=== PATIENT | male | born 1935 | race Caucasian/White ===

== ENCOUNTER 2017-08-05 07:57 | Day surgery (SDC) | payer MEDICARE ==
[~2017-08-05] VITALS: Ht 167.6 cm; Wt 62.6 kg
[~2017-08-05 07:57] MED LIST: ASPI325 PO; CLIN150 PO; Cipro500 MG PO; Cleocin HCl300 MG PO; Flagyl500 MG PO; GUAI600T33; GUAI600T33 PO; LOSA50 PO; SACC250C PO; TYLENOL COLD M
== END 2017-08-05 10:34 | disposition home or self-care (01) ==
LOC: ORSCSDS 07:57
PROVIDERS: Internal Medicine Gastroenterology
PROC: 0DBL8ZX Excision of Transverse Colon, Via Natural or Artificial Opening Endoscopic, Diagnostic (ICD-10-PCS; principal; 2017-08-05 09:30)
PROC: 0DBK8ZX Excision of Ascending Colon, Via Natural or Artificial Opening Endoscopic, Diagnostic (ICD-10-PCS; principal; 2017-08-05 09:30)
PROC: 0DBP8ZX Excision of Rectum, Via Natural or Artificial Opening Endoscopic, Diagnostic (ICD-10-PCS; principal; 2017-08-05 09:30)
PROC: 0DBH8ZX Excision of Cecum, Via Natural or Artificial Opening Endoscopic, Diagnostic (ICD-10-PCS; principal; 2017-08-05 09:30)
DX: Z12.11 Encounter for screening for malignant neoplasm of colon (principal); D12.0 Benign neoplasm of cecum; D12.3 Benign neoplasm of transverse colon; D12.2 Benign neoplasm of ascending colon; K62.1 Rectal polyp; I10 Essential (primary) hypertension; K64.8 Other hemorrhoids; K57.30 Diverticulosis of large intestine without perforation or abscess without bleeding; Z86.010 Personal history of colon polyps; Z80.0 Family history of malignant neoplasm of digestive organs; Z79.899 Other long term (current) drug therapy
CPT/HCPCS: 88305; J7120

== ENCOUNTER 2019-07-05 12:00 | Observation (INO) | payer MEDICARE ==
[~2019-07-05] VITALS: Ht 165.1 cm; Wt 58.6 kg
[~2019-07-05 12:00] MED LIST changes: -GUAI600T33 PO
[2019-07-05 12:27] LABS: BASOPHILS ABSOLUTE AUTO 0.07 K/mm3 (0.00-0.23); BASOPHILS PERCENT AUTO 1 % (0-2); EOSINOPHILS ABSOLUTE AUTO 0.13 K/mm3 (0.00-0.68); EOSINOPHILS PERCENT AUTO 2 % (0-6); Hematocrit 40.3 % (37.0-53.0); Hemoglobin 13.4 g/dL (13.5-17.5); IMMATURE GRAN ABSOLUTE AUTO 0.02 K/mm3 (0.00-0.10); IMMATURE GRAN PERCENT AUTO 0 % (0-1); LYMPHOCYTES ABSOLUTE AUTO 1.25 K/mm3 (0.84-5.20); LYMPHOCYTES PERCENT AUTO 18 % (21-46); MONOCYTES ABSOLUTE AUTO 0.76 K/mm3 (0.16-1.47); MONOCYTES PERCENT AUTO 11 % (4-13); Mean Corpuscular HGB 32.4 pg (26.0-34.0); Mean Corpuscular HGB Conc 33.3 g/dL (31.5-36.5); Mean Corpuscular Volume 97 fL (80-100); Mean Platelet Volume 10.4 fL (9.1-12.4); NEUTROPHILS ABSOLUTE AUTO 4.58 K/mm3 (1.96-9.15); NEUTROPHILS PERCENT AUTO 67 % (41-73); Platelet Count 180 K/mm3 (150-400); RDW Standard Deviation 43.4 fL (35.1-46.3); Red Blood Cell Count 4.14 M/mm3 (4.30-5.90); White Blood Cell Count 6.81 K/mm3 (4.00-11.30)
[2019-07-05 12:40] LABS: International Normalized Ratio 1.07; Prothrombin Time Results 11.4 Sec (9.7-11.5)
[2019-07-05 12:45] LABS: Alanine Aminotransfer (ALT/SGP 44 U/L (12-78); Albumin, Blood 3.7 g/dL (3.4-5.0); Albumin/Globulin Ratio 1.1 (0.8-1.8); Alk Phos 72 U/L (50-136); Anion Gap 6 mmol/L (6-16); Aspartate Aminotrans (AST/SGOT 31 U/L (12-37); Bilirubin, Total 0.6 mg/dL (0.1-1.0); Blood Urea Nitrogen 23 mg/dL (8-24); Bun/Creatinine Ratio 21.7 (12.0-20.0); CO2, Blood 27 mmol/L (21-32); Calcium, Blood 8.6 mg/dL (8.5-10.1); Chloride, Blood 106 mmol/L (98-108); Creatinine, Blood 1.06 mg/dL (0.60-1.20); Globulin, Blood 3.4 g/dL (2.2-4.0); Glomerular Filtration Rate >60 (60-); Glucose, Blood 104 mg/dL (70-99); Sodium, Blood 139 mmol/L (136-145); Total Protein, Blood 7.1 g/dL (6.4-8.2)
[2019-07-05 14:05] LABS: Source, Urine Clean Catch
[2019-07-05 14:07] LABS: Bilirubin, Urine Neg (Neg); Blood, Urine Neg (Neg); Glucose Qualitative, Urine Neg (Neg); Ketones, Urine Neg (Neg); Leukocyte Esterase, Urine Neg (Neg); Nitrite, Urine Neg (Neg); Protein, Urine Neg (Neg); Urobilinogen, Urine NORM (Normal)
[2019-07-05 14:16] LABS: Appearance, Urine Clear (Clear); Color, Urine Yellow (P-Yellow)
[2019-07-05] MEDS ORDERED: MUCUS RLF DM E1 EACH PO (14:41)
[2019-07-05] MEDS ORDERED: HYDCHL25 PO (18:45)
[2019-07-05] MEDS ORDERED: Loratadine10 MG PO (18:46)
[2019-07-05] MEDS ORDERED: ACET500 PO (18:48)
--- NOTE | 2019-07-05 19:07 | NUR ---
SHIFT SUMMARY PT AXO PLEASANT AND COOPERATIVE WITH CARE. ARRIVED TO ROOM AT 1635. ADMISSION COMPLETE. PT ORIENTED TO ROOM. PT HAD BM AT ABOUT 1830 THAT WAS BROWN WITH SOME RUST COLORED BLOOD TINGED TOILET PAPER AND AREAS SURROUNDING. PT UP AD HAO WITH STEADY GAIT. PT REPORTS THAT HE WAS PRESCRIBED ORETEC BUT HE STOPPED TAKING IT BECAUSE IT MADE HIM FEEL TOO "DRY" AND HE "URINATED TOO MUCH AT NIGHT." BED IN LOW POSITION, CALL LIGHT WITHIN REACH. AWAITING GI CONSULT AT THIS TIME
--- NOTE | 2019-07-05 19:28 | NUR ---
PT ALERT AND ORINETED. VOICED RECENT BOWEL MOVEMENT OF "RED BLOOD" AND CAME IN TO THE HOSPITAL. HX OF COLONOSCOPY WITH POLYP REMOVALS. CURRENTLY ON FULL LIQUID DIET, WILL BE NPO AT MIDNIGHT FOR COLONOSCOPY IN THE AM. CALL LIGHT IN REACH.
--- NOTE | 2019-07-06 04:28 | NUR ---
PT WAS AWAKE UNTIL ABOUT MIDNIGHT, WATCHING TV, VOICED HE WAS WATCHING AN INTERESTING PROGRAM. FULL LIQUID DIET CONTINUES. PT WAS SCHEDULED FOR COLONOSCOPY BUT THIS WAS CHANGED LAST PM. HAS BEEN RESTING QUIETLY SINCE AROUND MIDNIGHT. CALL LIGHT IN REACH.
[2019-07-06 05:05] LABS: BASOPHILS ABSOLUTE AUTO 0.07 K/mm3 (0.00-0.23); BASOPHILS PERCENT AUTO 1 % (0-2); EOSINOPHILS ABSOLUTE AUTO 0.21 K/mm3 (0.00-0.68); EOSINOPHILS PERCENT AUTO 3 % (0-6); Hematocrit 38.4 % (37.0-53.0); Hemoglobin 12.7 g/dL (13.5-17.5); IMMATURE GRAN ABSOLUTE AUTO 0.01 K/mm3 (0.00-0.10); IMMATURE GRAN PERCENT AUTO 0 % (0-1); LYMPHOCYTES ABSOLUTE AUTO 1.93 K/mm3 (0.84-5.20); LYMPHOCYTES PERCENT AUTO 28 % (21-46); MONOCYTES ABSOLUTE AUTO 0.81 K/mm3 (0.16-1.47); MONOCYTES PERCENT AUTO 12 % (4-13); Mean Corpuscular HGB 31.7 pg (26.0-34.0); Mean Corpuscular HGB Conc 33.1 g/dL (31.5-36.5); Mean Corpuscular Volume 96 fL (80-100); Mean Platelet Volume 10.7 fL (9.1-12.4); NEUTROPHILS PERCENT AUTO 56 % (41-73); Platelet Count 163 K/mm3 (150-400); RDW Coefficient Variation 11.9 % (11.7-14.2); RDW Standard Deviation 41.5 fL (35.1-46.3); Red Blood Cell Count 4.01 M/mm3 (4.30-5.90); White Blood Cell Count 6.93 K/mm3 (4.00-11.30)
[2019-07-06 05:35] LABS: Anion Gap 7 mmol/L (6-16); Blood Urea Nitrogen 21 mg/dL (8-24); CO2, Blood 25 mmol/L (21-32); Calcium, Blood 8.8 mg/dL (8.5-10.1); Chloride, Blood 107 mmol/L (98-108); Creatinine, Blood 1.05 mg/dL (0.60-1.20); Glomerular Filtration Rate >60 (60-); Glucose, Blood 93 mg/dL (70-99); Potassium, Blood 3.9 mmol/L (3.5-5.5); Sodium, Blood 139 mmol/L (136-145)
--- NOTE | 2019-07-06 05:43 | NUR ---
AT SHIFT COMMENCE NURSE ASKED PT TO REPORT ANY BM DURING THE SHIFT SO NURSE COULD SEE IT. PT JUST REPORTED BM, NOTED MODERATE AMT BRIGHT RED COLORED LIQUIE IN TOILET. CALL LIGHT IN REACH.
--- NOTE | 2019-07-06 19:05 | NUR ---
SHIFT SUMMARY PATIENT DENIES PAIN, NAUSEA, AND SHORTNESS OF BREATH. PATIENT UP INDEPENDENT IN ROOM. PATIENT CONTINUES TO HAVE STEVE RED BLOOD IN STOOLS AND STOOLS FREQUENTLY. DR. WEISS CONSULTED FOR GI. PATIENT NPO AND GLORIA ORDERED. CALL LIGHT IN REACH.
--- NOTE | 2019-07-06 20:40 | NUR ---
ASSUMED CARE OF RALPH. HE STATES THIS IS NOT HIS FIRST RODEO WITH GI BLEEDS. HE IS CONCERNED THAT HE IS NOT BEING TAKEN IN FOR SURGERY BUT UNDERSTANDS THE DELEMA. HE IS UP AND DOWN TO THE BATHROOM, HAS SEVERAL LIGHT RED STOOLS AND THEN HE WILL HAVE A VERY DARK STOOL. HE REPORTS UP TO 10 STOOLS SO FAR. HE HAS DRANK 1/2 OF THE GO LYTE. DENIES ANY NAUSEA OR PAIN. BOWEL TONES HYPOACTIVE, IS PASSING FLATUS. WILL CONTINUE TO MONITOR. CALL LIGHT IN REACH.
--- NOTE | 2019-07-06 23:26 | NUR ---
RALPH IS CURRENTLY SLEEPING. IS INDEPENDENT TO THE BATHROOM. STILL HAS SOME OF THE BOWEL PREP TO FINISH. NO DISTRESS NOTED. CALL LIGHT IN REACH.
--- NOTE | 2019-07-07 00:51 | NUR ---
RALPH WAS JUST UP TO THE BATHROOM, STOOLS IS LIGHT ALMOST CLEAR, NO BLOOD AT THIS POINT. HE FINISHED HIS GO LYTLY. HE ASKED FOR MUCINEX, INFORMED HIM THERE IS NO ORDER. WILL HOP ON NEXT CALL TO MD AND SEE IF I CAN GET AN ORDER FOR IT. STATES HE TAKES IT FOR HIS SINUSES.
--- NOTE | 2019-07-07 04:25 | NUR ---
SHIFT SUMMARY: RALPH WAS UP AND DOWN THROUGHOUT THE NIGHT TO THE BATHROOM. STOOLS STARTED OFF WITH RUST RED COLOR AND NOW IS MORE A VERY LIGHT YELLOW COLOR, BUT STILL HAD SOME CHUNKS. HE HAS HAD NO NAUSEA THIS SHIFT. VS HAVE REMAINED STABLE. NO DIZZINESS NOTED. HE HAS BEEN NPO OTHER THEN SOME ICE AND WATER. HE HAS BEEN INDEPENDENT IN THE ROOM. DID REPORT SOME SINUS CONGESTION THAT STARTED YESTERDAY. THAT IS NOT ABNORMAL FOR HIM. NO PAIN NOTED. HE DID FINISH HIS BOWEL PREP. WILL CHECK LABS WHEN DRAWN. NO OTHER ACUTE CHANGES OCCURRED THIS SHIFT. WILL REPORT TO DAY SHIFT.
[2019-07-07 08:25] LABS: Hematocrit 36.9 % (37.0-53.0); Hemoglobin 12.1 g/dL (13.5-17.5)
--- NOTE | 2019-07-07 16:16 | NUR ---
SHIFT SUMMARY PATIENT DENIES PAIN, NAUSEA, AND SHORTNESS OF BREATH. PATIENT UP INDEPENDENT IN ROOM. PATIENT'S STOOLS HAVE BECOME LIGHT PINK TO NO VISIBLE BLOOD THIS SHIFT. PATIENT DIET ADVANCED TO FULL LIQUID. CALL LIGHT IN REACH.
--- NOTE | 2019-07-08 04:18 | NUR ---
SHIFT SUMMARY A/O, ABLE TO MAKE NEEDS KNOWN. COOPERATIVE WITH CARE. CALLS AND ANSWERS QUESTIONS APPROPRIATELY. NO C/O PAIN/DISCOMFORT OVERNIGHT. INDEPENDENT IN ROOM. STATED HAS NOT HAD A BM SINCE EARLY YESTERDAY 07/07/19; ONLY THING COMING OUT IS GAS. CONTINUES TO SHOW ANY KIND OF EVIDENCE IN TOILET; NON THUS FAR. VSS/AFEBRILE. NO ACUTE CHANGES NOTED OVERNIGHT. STATED ABLE TO SLEEP SOME. BED IN LOWEST POSITION. CALL LIGHT AND BELONGINGS WITHIN REACH. WCTM. REPORT TO ONCOMING RN.
[2019-07-08 10:25] LABS: Hematocrit 35.3 % (37.0-53.0); Hemoglobin 11.8 g/dL (13.5-17.5)
--- NOTE | 2019-07-08 13:08 | NUR ---
DISCHARGE DISCHARGE MEDICATIONS AND INSTRUCTIONS EXPLAINED TO PATIENT. PATIENT STATED UNDERSTANDING. NINI WILL CALL PATIENT AT HOME TO SCHEDULE PCP FOLLOW UP. IV REMOVED WITHOUT ISSUE. BELONGINGS WITH PATIENT. HOME MEDICATION RETURNED. PATIENT TRANSFERED TO PRIVATE VEHICLE VIA WHEELCHAIR.
== END 2019-07-08 13:08 | disposition home or self-care (01) ==
LOC: ER 12:00 → MEDS 12:01
PROVIDERS: Emergency Medicine; Internal Medicine Gastroenterology; ADMIT Internal Medicine
DX: K92.1 Melena (principal); D62 Acute posthemorrhagic anemia; I10 Essential (primary) hypertension; K64.9 Unspecified hemorrhoids; Z79.899 Other long term (current) drug therapy; Z87.19 Personal history of other diseases of the digestive system; Z88.0 Allergy status to penicillin; Z86.010 Personal history of colon polyps
CPT/HCPCS: 36415; 80048; 80053; 81003; 85014; 85018; 85025; 85027; 85610; 93005; 93010; 99285-25; A9270; A9270-GY; G0378

== ENCOUNTER 2023-01-12 13:14 | Emergency (ER) | payer MEDICARE ==
[~2023-01-12] VITALS: Ht 170.2 cm; Wt 59.9 kg
[~2023-01-12 13:14] MED LIST changes: +ACET500 PO; +HYDCHL25 PO; +Loratadine10 MG PO; +MUCUS RLF DM E1 EACH PO
[2023-01-12 14:10] LABS: BASOPHILS ABSOLUTE AUTO 0.08 K/mm3 (0.00-0.23); BASOPHILS PERCENT AUTO 1 % (0-2); EOSINOPHILS ABSOLUTE AUTO 0.12 K/mm3 (0.00-0.68); EOSINOPHILS PERCENT AUTO 2 % (0-6); Hematocrit 31.3 % (37.0-53.0); Hemoglobin 10.4 g/dL (13.5-17.5); IMMATURE GRAN ABSOLUTE AUTO 0.01 K/mm3 (0.00-0.10); IMMATURE GRAN PERCENT AUTO 0 % (0-1); LYMPHOCYTES ABSOLUTE AUTO 0.96 K/mm3 (0.84-5.20); LYMPHOCYTES PERCENT AUTO 17 % (21-46); MONOCYTES ABSOLUTE AUTO 0.59 K/mm3 (0.16-1.47); MONOCYTES PERCENT AUTO 10 % (4-13); Mean Corpuscular HGB Conc 33.2 g/dL (31.5-36.5); Mean Corpuscular Volume 96 fL (80-100); Mean Platelet Volume 10.3 fL (9.1-12.4); NEUTROPHILS ABSOLUTE AUTO 4.05 K/mm3 (1.96-9.15); NEUTROPHILS PERCENT AUTO 70 % (41-73); Platelet Count 181 K/mm3 (150-400); RDW Coefficient Variation 12.2 % (11.7-14.2); RDW Standard Deviation 43.2 fL (35.1-46.3); Red Blood Cell Count 3.25 M/mm3 (4.30-5.90); White Blood Cell Count 5.81 K/mm3 (4.00-11.30)
[2023-01-12 14:31] LABS: Albumin, Blood 3.4 g/dL (3.4-5.0); Bilirubin, Total 0.7 mg/dL (0.1-1.0); Bun/Creatinine Ratio 25.5 (12.0-20.0); Calcium, Blood 8.7 mg/dL (8.5-10.1); Creatinine, Blood 0.83 mg/dL (0.60-1.20); Globulin, Blood 3.4 g/dL (2.2-4.0); Potassium, Blood 5.2 mmol/L (3.5-5.5); Total Protein, Blood 6.8 g/dL (6.4-8.2)
[2023-01-12 19:30] VITALS: BP 134/78
== END 2023-01-12 20:02 | disposition home or self-care (01) ==
LOC: ER 13:14
PROVIDERS: Student in an Organized Health Care Education/Training Program
DX: K92.2 Gastrointestinal hemorrhage, unspecified (principal); D64.9 Anemia, unspecified; Z88.0 Allergy status to penicillin; Z91.018 Allergy to other foods; Z79.899 Other long term (current) drug therapy; I10 Essential (primary) hypertension
CPT/HCPCS: 80053; 82272; 85025; 85730; 86850; 86900; 86901; 96374; 99285-25; C9113

== ENCOUNTER 2023-01-22 17:35 | Emergency (ER) | payer MEDICARE ==
[~2023-01-22] VITALS: Ht 167.6 cm; Wt 54.0 kg
[2023-01-22] MEDS ORDERED: LOSARTAN POTASS25 M2 PO (17:44)
[2023-01-22 18:17] LABS: BASOPHILS ABSOLUTE AUTO 0.11 K/mm3 (0.00-0.23); BASOPHILS PERCENT AUTO 1 % (0-2); EOSINOPHILS PERCENT AUTO 2 % (0-6); Hematocrit 30.1 % (37.0-53.0); Hemoglobin 10.1 g/dL (13.5-17.5); IMMATURE GRAN ABSOLUTE AUTO 0.02 K/mm3 (0.00-0.10); IMMATURE GRAN PERCENT AUTO 0 % (0-1); LYMPHOCYTES ABSOLUTE AUTO 1.54 K/mm3 (0.84-5.20); LYMPHOCYTES PERCENT AUTO 16 % (21-46); MONOCYTES ABSOLUTE AUTO 0.79 K/mm3 (0.16-1.47); MONOCYTES PERCENT AUTO 8 % (4-13); Mean Corpuscular HGB 32.7 pg (26.0-34.0); Mean Corpuscular HGB Conc 33.6 g/dL (31.5-36.5); Mean Corpuscular Volume 97 fL (80-100); Mean Platelet Volume 10.1 fL (9.1-12.4); NEUTROPHILS ABSOLUTE AUTO 6.81 K/mm3 (1.96-9.15); NEUTROPHILS PERCENT AUTO 72 % (41-73); Platelet Count 284 K/mm3 (150-400); RDW Coefficient Variation 12.6 % (11.7-14.2); RDW Standard Deviation 44.8 fL (35.1-46.3); Red Blood Cell Count 3.09 M/mm3 (4.30-5.90); White Blood Cell Count 9.47 K/mm3 (4.00-11.30)
[2023-01-22 18:42] LABS: Albumin, Blood 3.6 g/dL (3.4-5.0); Albumin/Globulin Ratio 1.1 (0.8-1.8); Bilirubin, Total 0.4 mg/dL (0.1-1.0); Bun/Creatinine Ratio 20.6 (12.0-20.0); Calcium, Blood 9.1 mg/dL (8.5-10.1); Creatinine, Blood 0.97 mg/dL (0.60-1.20); Globulin, Blood 3.4 g/dL (2.2-4.0); Potassium, Blood 4.9 mmol/L (3.5-5.5)
[2023-01-22 22:19] LABS: Hemoglobin 8.7 g/dL (13.5-17.5)
[2023-01-23 00:19] LABS: Hematocrit 26.5 % (37.0-53.0); Hemoglobin 8.8 g/dL (13.5-17.5)
[2023-01-23 02:07] VITALS: BP 116/61
== END 2023-01-23 02:07 | disposition home or self-care (01) ==
LOC: ER 17:35
PROVIDERS: Emergency Medicine; Student in an Organized Health Care Education/Training Program
DX: K92.1 Melena (principal); D64.9 Anemia, unspecified; I10 Essential (primary) hypertension
CPT/HCPCS: 80053; 85014; 85018; 85025; 86850; 86900; 86901; 99285

== ENCOUNTER 2023-02-26 04:57 | Inpatient (IN) | payer OTHER ==
[~2023-02-26] VITALS: Ht 167.6 cm; Wt 54.0 kg
[~2023-02-26 04:57] MED LIST changes: +LOSARTAN POTASS25 M2 PO
[2023-02-26 05:36] LABS: BASOPHILS ABSOLUTE AUTO 0.09 K/mm3 (0.00-0.23); BASOPHILS PERCENT AUTO 1 % (0-2); EOSINOPHILS ABSOLUTE AUTO 0.14 K/mm3 (0.00-0.68); EOSINOPHILS PERCENT AUTO 1 % (0-6); Hemoglobin 8.7 g/dL (13.5-17.5); IMMATURE GRAN ABSOLUTE AUTO 0.04 K/mm3 (0.00-0.10); IMMATURE GRAN PERCENT AUTO 0 % (0-1); LYMPHOCYTES ABSOLUTE AUTO 1.02 K/mm3 (0.84-5.20); LYMPHOCYTES PERCENT AUTO 10 % (21-46); MONOCYTES ABSOLUTE AUTO 0.82 K/mm3 (0.16-1.47); MONOCYTES PERCENT AUTO 8 % (4-13); Mean Corpuscular HGB 28.9 pg (26.0-34.0); Mean Corpuscular HGB Conc 32.2 g/dL (31.5-36.5); Mean Corpuscular Volume 90 fL (80-100); Mean Platelet Volume 10.3 fL (9.1-12.4); NEUTROPHILS ABSOLUTE AUTO 7.92 K/mm3 (1.96-9.15); NEUTROPHILS PERCENT AUTO 79 % (41-73); Platelet Count 232 K/mm3 (150-400); RDW Coefficient Variation 12.9 % (11.7-14.2); RDW Standard Deviation 42.9 fL (35.1-46.3); Red Blood Cell Count 3.01 M/mm3 (4.30-5.90); White Blood Cell Count 10.03 K/mm3 (4.00-11.30)
[2023-02-26 06:58] LABS: Albumin, Blood 3.5 g/dL (3.4-5.0); Albumin/Globulin Ratio 1.1 (0.8-1.8); Bilirubin, Total 0.5 mg/dL (0.1-1.0); Bun/Creatinine Ratio 23.6 (12.0-20.0); Calcium, Blood 8.7 mg/dL (8.5-10.1); Creatinine, Blood 1.23 mg/dL (0.60-1.20); Globulin, Blood 3.1 g/dL (2.2-4.0); Potassium, Blood 4.4 mmol/L (3.5-5.5); Total Protein, Blood 6.6 g/dL (6.4-8.2)
[2023-02-26 07:47] LABS: Calcium, Blood 8.7 mg/dL (8.5-10.1); Potassium, Blood 4.4 mmol/L (3.5-5.5)
[2023-02-26] MEDS ORDERED: LOSA25 PO (10:17)
[2023-02-26 10:43] LABS: Hematocrit 25.7 % (37.0-53.0); Hemoglobin 8.3 g/dL (13.5-17.5); Mean Corpuscular HGB 29.3 pg (26.0-34.0); Mean Corpuscular HGB Conc 32.3 g/dL (31.5-36.5); Mean Corpuscular Volume 91 fL (80-100); Mean Platelet Volume 10.2 fL (9.1-12.4); Platelet Count 226 K/mm3 (150-400); RDW Standard Deviation 42.8 fL (35.1-46.3); Red Blood Cell Count 2.83 M/mm3 (4.30-5.90); White Blood Cell Count 10.74 K/mm3 (4.00-11.30)
--- NOTE | 2023-02-26 14:06 | NUR ---
PATIENT ARRIVED FROM ER TODAY. RIGHT HIP FX PATIENT IS [place] BUT IS A&OX2-3 SINCE HE CAN BE A POOR HISTORIAN PER DAUGHTER. VS ARE WNL AND IS ON RA. TELE IS IN PLACE AND IS SINUS TACH AT 111 BPM PER MILO THE PACKAGE CLERK. HE IS TOLERATING SMALL AMOUNTS OF PO INTAKE. PATIENT DENIES NUMBNESS OR TINGLING IN ALL EXTREMITIES. CAN MOVE ALL FINGERS AND TOES WHEN ASKED. PATIENT HAS A BRUISE ON HIS RIGHT HIP, RIGHT ELBOW, AND RIGHT FOREHEAD. PATIENT IS LAYING IN BED WITH CALL LIGHT IN REACH. DAUGHTERS PHONE NUMBER IS ON WHITEBOARD IN THE ROOM.
[2023-02-26 14:18] VITALS: BP 142/68
[2023-02-26] MEDS ORDERED: MASOPHEN325 M1 PO (14:27)
[2023-02-26] MEDS ORDERED: GUAI600T33 PO ×2 (14:27→14:28)
[2023-02-26 15:45] LABS: Source, Urine Foley catheter
[2023-02-26 15:49] LABS: Appearance, Urine Clear (Clear); Bilirubin, Urine Neg (Neg); Blood, Urine Neg (Neg); Color, Urine Yellow (P-Yellow); Glucose Qualitative, Urine Neg (Neg); Ketones, Urine Neg (Neg); Leukocyte Esterase, Urine Neg (Neg); Nitrite, Urine Neg (Neg); Protein, Urine Neg (Neg); Specific Gravity, Urine 1.015 (1.003-1.022); Urobilinogen, Urine NORM (Normal)
--- NOTE | 2023-02-26 15:49 | NUR ---
SHIFT SUMMARY: RIGHT HIP FX PATIENT IS A&OX2-3 DUE TO BEING A POOR HISTORIAN PER PATIENTS DAUGHTER AND IS [place]. VS ARE WNL AND IS ON RA. PATIENT DENIES PAIN AT THIS TIME. CH WAS JUST INSERTED AND IS DRAINING PER GRAVITY WITH YELLOW URINE. HIS RIGHT HIP, ELBOW, AND FOREHEAD HAVE A PURPLE BRUISE ON THEM. PATIENT IS ABLE TO MOVE ALL FINGERS AND TOES WHEN ASKED. DENIES NUMBNESS OR TINGLING IN ALL EXTREMITIES. PATIENT IS TOLERATING SMALL AMOUNTS OF PO INTAKE. HE IS LAYING IN BED WITH CALL LIGHT IN REACH. THE PLAN IS TO BE NPO AT MIDNIGHT FOR POSSIBLE SURGERY IN THE MORNING.
[2023-02-26 18:30] LABS: Hematocrit 28.4 % (37.0-53.0)
[2023-02-26 20:13] VITALS: BP 156/72
[2023-02-26 20:19] VITALS: BP 156/72
--- NOTE | 2023-02-26 20:35 | NUR ---
STATUS CHANGE PT CONFUSED THIS EVENING, DOES NOT KNOW WHERE HE IS. NO REPORT FROM DAYSMTFT RN OF ANY CONFUSION. PT DOES NOT KNOW WHERE HE IS AND STATES HE IS "AT HOME". PT DROWSY AND HAS A BLANK STARE WHEN AWAKE. NOT SAFE TO TAKE ORAL MEDICATION AT THIS TIME. VITALS OBTAINED, PT IS TACYCARDIC HR 117-120, FEBRILE, AND IS NOW REQUIERING 3L O2 TO KEEP SATS ABOVE 90%. SPOKE WITH MIGUEL BEAUCHAMP TO NOTIFIED HIM OF PT SYMPTOMS. AND THAT PT NOW REQUIERING O2. HE INCREASED FLUID RATE OF LR TO 100ML/HR, ORDERED A VBG, COVID/INFLUENZA TEST AND TORADOL FOR FEVER.
[2023-02-26 21:25] LABS: Base Excess Venous 0.8 mmol/L; Bicarbonate Venous 24.5 mmol/L (24.0-30.0); PCO2 Venous 46.8 mmHg (38-42); pH Blood Venous 7.36 (7.34-7.37)
[2023-02-26 23:38] LABS: Influenza A, PCR NEGATIVE (NEGATIVE); Influenza B, PCR NEGATIVE (NEGATIVE); Resp Syncytial Virus, PCR NEGATIVE (NEGATIVE)
[2023-02-27] VITALS (16 sets, daily range): BP systolic 97–135; BP diastolic 53–87
[2023-02-27 00:02] LABS: SARS-Cov-2 (COVID-19) PCR, MMC POSITIVE (NEGATIVE)
--- NOTE | 2023-02-27 04:35 | NUR ---
SHIFT SUMMARY PT HAS SLEPT WELL THROUGH THE SECOND HALF OF THE SHIFT. PT AT THE START OF THE SHIFT WAS CONFUSED AND DROWSY. TACYCARDIC, AND REQUIERING 02 TO GET SATS ABOVE 90%. PT STILL IS ON 3L O2. PLEASE SEE PREVIOUS NURSE'S NOTES. PROVIDER NOTIFIED. PT STARTED ON FLUIDS, AND LABS ORDERED. PT TESTED POSITIVE FOR COVID THIS SHIFT, ISOLATION PRECAUTIONS IN PLACE. PT HAS PERIODS OF CONFUSION AND IS UNABLE TO TELL ME WHERE HE IS OR ANSWER MANY OF MY QUESTIONS. THEN AT TIMES HE IS MORE CLEAR AND ABLE TO TELL ME WHERE HE AND IS ABLE TO EXPRESS WHAT HE NEEDS. PT MEDICATED PRN FOR PAIN PER EMAR. PT HAS BEEN NPO SINCE MIDNIGHT. PT ATTEMPTS TO GET OOB WITHOUT CALLING FOR ASSISTANCE, AND YELLS OUT INSTEAD OF USING CALL LIGHT. BED ALARM IN PLACE FOR SAFETY. PLAN IS FOR PROCEDURE TODAY. BED IN LOWEST POSITION, CALL LIGHT WITHIN REACH.
[2023-02-27 05:14] LABS: BASOPHILS ABSOLUTE AUTO 0.06 K/mm3 (0.00-0.23); BASOPHILS PERCENT AUTO 1 % (0-2); EOSINOPHILS ABSOLUTE AUTO 0.02 K/mm3 (0.00-0.68); EOSINOPHILS PERCENT AUTO 0 % (0-6); Hematocrit 26.7 % (37.0-53.0); Hemoglobin 8.4 g/dL (13.5-17.5); IMMATURE GRAN ABSOLUTE AUTO 0.05 K/mm3 (0.00-0.10); IMMATURE GRAN PERCENT AUTO 0 % (0-1); LYMPHOCYTES ABSOLUTE AUTO 0.58 K/mm3 (0.84-5.20); LYMPHOCYTES PERCENT AUTO 5 % (21-46); MONOCYTES ABSOLUTE AUTO 0.84 K/mm3 (0.16-1.47); MONOCYTES PERCENT AUTO 7 % (4-13); Mean Corpuscular HGB 28.7 pg (26.0-34.0); Mean Corpuscular HGB Conc 31.5 g/dL (31.5-36.5); Mean Corpuscular Volume 91 fL (80-100); Mean Platelet Volume 10.6 fL (9.1-12.4); NEUTROPHILS ABSOLUTE AUTO 9.89 K/mm3 (1.96-9.15); NEUTROPHILS PERCENT AUTO 87 % (41-73); Platelet Count 210 K/mm3 (150-400); RDW Coefficient Variation 13.2 % (11.7-14.2); RDW Standard Deviation 43.5 fL (35.1-46.3); Red Blood Cell Count 2.93 M/mm3 (4.30-5.90); White Blood Cell Count 11.44 K/mm3 (4.00-11.30)
[2023-02-27 06:19] LABS: Bun/Creatinine Ratio 20.2 (12.0-20.0); Calcium, Blood 8.6 mg/dL (8.5-10.1); Creatinine, Blood 1.24 mg/dL (0.60-1.20); Potassium, Blood 4.9 mmol/L (3.5-5.5)
--- NOTE | 2023-02-27 12:31 | NUR ---
PT TO GET READY FOR PROCEDURE IN ROOM. PT WILL GO STRAIGHT FROM ROOM TO OR FOR PROCEDURE,
--- NOTE | 2023-02-27 14:24 | NUR ---
02/27/23 1424 [place] I CEFAZOLIN 2 GRAMS GIVEN IVPB INTRAOPERATIVELY BY ANESTHESIA, CO.THELMA.
--- NOTE | 2023-02-27 18:31 | NUR ---
SHIFT SUMMARY S/P R GAMMA NAIL, SURGICAL DRESSING CDI, ANGELICA PO, CH PATENT/DRAINING/STAT LOCK ON/OFF FLOOR, REPOSITIONING, PAIN TREATED PER EMAR, TELE AFLUTTER @ 108 AFTER 2.5 MG LOPRESSOR, 4LNC POSTOP, BIOX ON, 2VXRAYS ORDERED FOR HUMERUS AND FOREARM. WILL REPORT TO ONCOMING NOC SEKOU.
[2023-02-28 02:56] VITALS: BP 115/58
[2023-02-28 04:50] LABS: BASOPHILS ABSOLUTE AUTO 0.03 K/mm3 (0.00-0.23); BASOPHILS PERCENT AUTO 0 % (0-2); EOSINOPHILS ABSOLUTE AUTO 0.07 K/mm3 (0.00-0.68); EOSINOPHILS PERCENT AUTO 1 % (0-6); Hematocrit 25.7 % (37.0-53.0); Hemoglobin 8.1 g/dL (13.5-17.5); IMMATURE GRAN ABSOLUTE AUTO 0.03 K/mm3 (0.00-0.10); IMMATURE GRAN PERCENT AUTO 0 % (0-1); LYMPHOCYTES ABSOLUTE AUTO 0.92 K/mm3 (0.84-5.20); LYMPHOCYTES PERCENT AUTO 9 % (21-46); MONOCYTES ABSOLUTE AUTO 1.27 K/mm3 (0.16-1.47); MONOCYTES PERCENT AUTO 13 % (4-13); Mean Corpuscular HGB 28.4 pg (26.0-34.0); Mean Corpuscular HGB Conc 31.5 g/dL (31.5-36.5); Mean Corpuscular Volume 90 fL (80-100); Mean Platelet Volume 10.7 fL (9.1-12.4); NEUTROPHILS ABSOLUTE AUTO 7.62 K/mm3 (1.96-9.15); NEUTROPHILS PERCENT AUTO 77 % (41-73); Platelet Count 193 K/mm3 (150-400); RDW Coefficient Variation 12.7 % (11.7-14.2); RDW Standard Deviation 42.1 fL (35.1-46.3); Red Blood Cell Count 2.85 M/mm3 (4.30-5.90); White Blood Cell Count 9.94 K/mm3 (4.00-11.30)
[2023-02-28 05:40] LABS: Bun/Creatinine Ratio 24.8 (12.0-20.0); Calcium, Blood 8.2 mg/dL (8.5-10.1); Creatinine, Blood 1.17 mg/dL (0.60-1.20); Potassium, Blood 4.9 mmol/L (3.5-5.5)
--- NOTE | 2023-02-28 06:05 | NUR ---
SHIFT SUMMARY POD1 RIGHT HIP PINNING. DRESSING ARE C/D/I. SENSATION AND CIRCULATION REMAIN INTACT. VSS, PT NOTED TO HAVE SOME PAUSES IN RESPIRATIONS WHILE SLEEPING. O2 SATURATIONS MAINTAINED >90%, EVEN WHILE TITRATING 02 FLOW DOWN. 4L VIA NC TO 1L. PT EXPERIENCED INTERMITTENT CONFUSION T/O THE NIGHT, BUT OVERALL WAS PLEASENT AND COOPERATIVE. WAS UNABLE TO REPOSITION Q2 D/T PT BEING UNABLE TO TOLLERATE IT. MEDICATED FOR PAIN WITH OXY AND DILAUDID. PT WOULD CALL OUT IF REPOSITIONED ANY OTHER WAY THAN HIGH FOWLERS. DRINKS PLACED INTO SIPPY CUPS BECAUSE PT IS UNABLE TO TIP CUP AT MOUTH AND IS UNABLE TO TOLLERATE LIQUIDS WITH STRAWS. PT IS DOING MUCH BETTER WITH THESE. CH REMAINS IN PLACE. PT DID NOT AMBULATE TONIGHT. PLAN FOR PT/OT TODAY TELE HAS READ A FLUTTER T/O THE NIGHT. ONE TIME IV DOSE OF LOPRESSER GIVEN D/T HR OF 130-140, MINIMAL IMPROVEMENT NOTED. OBTAINED ORDER FOR 25 MG LOPRESSOR BID. HR HAS BEEN CONTROLLED WELL AFTER THIS. 90'S-100.
[2023-02-28 08:08] VITALS: BP 100/64
[2023-02-28 11:09] VITALS: BP 119/67
--- NOTE | 2023-02-28 16:54 | NUR ---
SHIFT SUMMARY POD1 R HIP NAILING, SURGICAL DRESSINGS CDI, SCDS/TEDS ON, PT/OT EVAL'D, WBAT, R-WRIST FX/BRACE ON/NWB, PLATFORM WALKER. 2 PP MAX ASSIST/UP TO CHAIR/BSC. A&OX3/[place] W/AIDS IN (CASH TELLER AT BEDSIDE), VSS/RA/TELE AFLUTTER @ 95 BPM/BIOX ON, ANGELICA PO - LOW PO INTAKE/FULL MEAL ASSIST, PASSING LARGE AMT FLATUS, PAIN MANAGED PER EMAR, CH PATENT & DRAINING YELLOW URINE/STAT LOCK ON/OFF FLOOR. REPORT PROVIDED TO CRISTINE SAPP.
[2023-02-28 19:20] VITALS: BP 112/64
[2023-02-28 23:47] VITALS: BP 134/70
[2023-03-01 05:22] VITALS: BP 127/69
--- NOTE | 2023-03-01 06:13 | NUR ---
SHIFT SUMMARY PT IS HERE POD#2 FROM A RIGHT HIP NAILING AFTER THE PATIENT WAS FOUND DOWN AT HOME BY FAMILY. PT IS COVID +. PT WAS YELLING FOR STAFF FROM HIS ROOM TOWARDS THE BEGINNING OF THE SHIFT BECAUSE HE WANTED TO GET BACK TO BED. PT IS A MAX 2 PERSON ASSIST WITH A GAIT BELT. PT IS ON TELEMETRY AND THE TELE DESK HAS CALLED THIS RN MULTIPLE TIMES THIS SHIFT TO REPORT THE PT'S HR BEING IN THE 150'S. RONA ZABALA CALLED THE MD AND GOT AN ORDER FOR AN ADDITIONAL ONE-TIME DOSE OF 25 MG METOPROLOL. DAY TIME MEDS WERE ALSO CHANGED TO ASSIST IN KEEPING THE PT'S HR DOWN. PT WAS FOUND LATER IN THE SHIFT TO HAVE PULLED OFF ALL OF HIS TELEMETRY LEADS, HIS PULSE-OX SENSOR, AND THE PT ALSO PULLED OUT HIS CH CATHETER WITH THE BALLOON STILL INFLATED. PT WAS CLEANED UP AND A NEW GOWN WAS PUT ON. PT'S PAIN MEDICATED PER EMAR. ASIDE FROM THE PT'S HR, THE PT'S VITAL SIGNS HAVE BEEN STABLE.
[2023-03-01 07:25] VITALS: BP 115/57
[2023-03-01 14:48] VITALS: BP 127/64
--- NOTE | 2023-03-01 19:24 | NUR ---
SHIFT SUMMARY POD2 R GAMMA NAIL, A/OX3 WITH INTERMITTENT FORGETFULNESS,TOLERATING PO,UNABLE TO AMBULATE ON HIS OWN BUT CAN STAND PIVOT WITH ONE TO TWO STAFF ASSIST. WORKED WITH THERAPY TODAY, UP TO CHAIR T/O MOST OF THE SHIFT, PAIN WELL MANAGED PER EMAR. NO ACUTE EVENTS THIS SHIFT, CALL LIGHT IN REACH.
[2023-03-01 19:58] VITALS: BP 112/59
[2023-03-02 03:11] VITALS: BP 112/67
--- NOTE | 2023-03-02 06:20 | NUR ---
SHIFT SUMMARY PT IS POD#3 FOR A RIGHT HIP INTRAMEDULLARY GAMMA NAILING AFTER BEING FOUND DOWN BY THE PT'S FAMILY AT HOME. PT'S RFA IS ALSO FRACTURED AT THIS TIME AFTER HIS FALL AND IS IN A BRACE. PT IS ALSO COVID +. THIS RN RECEIVED ONE CALL FROM THE TELE DESK AROUND 0200 STATING THE PT'S HR WAS ONCE AGAIN IN THE 150'S. THIS RN WENT TO GO CHECK ON THE PT AND THIS RN FOUND THAT THE PT WAS ALMOST COMPLETELY OUT OF HIS BED, WITH HIS STOMACH ON THE BED, WITH HIS KNEES ABOUT READY TO TOUCH THE FLOOR. THIS RN ASSISTED THE PT ON GETTING BACK TO BED AND THIS RN AND PAT MCKEON ATTMEPTED TO GET THE PT COMFORTABLE. PT KEPT YELLING OUT "HELP" WHEN THIS RN OR PAT MCKEON WERE IN THE ROOM ASSISTING THE PT. PT STATES HE IS TRYING TO GET COMFORTABLE WITHOUT ANY SUCCESS FROM HIMSELF OR STAFF. LATER IN THE SHIFT, AFTER URINATING, PT WAS ABLE TO REST FOR A WHILE. VITAL SIGNS HAVE BEEN STABLE THROUGHOUT THE SHIFT. BED ALARM IS ON, BED IS IN LOWEST POSTION, CALL LIGHT IS WITHIN REACH.
[2023-03-02 07:42] VITALS: BP 134/67
[2023-03-02 14:44] VITALS: BP 131/62
--- NOTE | 2023-03-02 19:00 | NUR ---
SHIFT SUMMARY POD3 R HIP GAMMA NAIL, A/OX2-3 AND FORGETFUL, BED ALARM ON FOR SAFETY BUT HE HAS NOT TRIED TO GET UP BY HIMSELF TODAY, VSS, TOLERATING DIET, PAIN WELL MANAGED PER EMAR, DOES WELL WITH STAND PIVOT TRANSFERS, HE IS UNABLE TO BEAR WEIGHT ON HIS R WRIST WHICH HAS A BRACE IN PLACE. SURGICAL DRESSINGS CHANGED TODAY AND APPLIED NEW AQUACELLS X2. NO ACUTE EVENTS THIS SHIFT, CALL LIGHT IN REACH.
[2023-03-02 19:06] VITALS: BP 128/68
[2023-03-03 02:00] VITALS: BP 138/112
[2023-03-03 04:25] VITALS: BP 131/67
[2023-03-03 04:56] LABS: BASOPHILS ABSOLUTE AUTO 0.04 K/mm3 (0.00-0.23); BASOPHILS PERCENT AUTO 0 % (0-2); EOSINOPHILS ABSOLUTE AUTO 0.15 K/mm3 (0.00-0.68); EOSINOPHILS PERCENT AUTO 1 % (0-6); Hematocrit 27.7 % (37.0-53.0); Hemoglobin 8.8 g/dL (13.5-17.5); IMMATURE GRAN ABSOLUTE AUTO 0.09 K/mm3 (0.00-0.10); IMMATURE GRAN PERCENT AUTO 1 % (0-1); LYMPHOCYTES ABSOLUTE AUTO 1.36 K/mm3 (0.84-5.20); LYMPHOCYTES PERCENT AUTO 7 % (21-46); MONOCYTES ABSOLUTE AUTO 2.11 K/mm3 (0.16-1.47); MONOCYTES PERCENT AUTO 11 % (4-13); Mean Corpuscular HGB 28.5 pg (26.0-34.0); Mean Corpuscular HGB Conc 31.8 g/dL (31.5-36.5); Mean Corpuscular Volume 90 fL (80-100); Mean Platelet Volume 10.7 fL (9.1-12.4); NEUTROPHILS ABSOLUTE AUTO 15.05 K/mm3 (1.96-9.15); NEUTROPHILS PERCENT AUTO 80 % (41-73); Platelet Count 181 K/mm3 (150-400); RDW Standard Deviation 42.4 fL (35.1-46.3); Red Blood Cell Count 3.09 M/mm3 (4.30-5.90)
[2023-03-03 05:32] LABS: Albumin, Blood 2.7 g/dL (3.4-5.0); Albumin/Globulin Ratio 0.8 (0.8-1.8); Bilirubin, Total 1.7 mg/dL (0.1-1.0); Bun/Creatinine Ratio 26.1 (12.0-20.0); Calcium, Blood 8.3 mg/dL (8.5-10.1); Creatinine, Blood 1.11 mg/dL (0.60-1.20); Globulin, Blood 3.3 g/dL (2.2-4.0); Potassium, Blood 5.2 mmol/L (3.5-5.5)
--- NOTE | 2023-03-03 06:44 | NUR ---
SHIFT SUMMARY PT IS POD#4 FOR A RIGHT INTRAMEDULLARY GAMMA HIP NAILING AFTER BEING FOUND DOWN AT HOME BY FAMILY. PT'S AGITATION HAD ESCALATED THROUGHOUT THE BEGINNING OF THE SHIFT, RESULTING IN SOME INTERVENTIONS THAT NEEDED TO BE PERFORMED FOR THE PT'S SAFETY. AT THE BEGINNING OF THE SHIFT, PT SEEMINGLY COULD NOT GET COMFORTABLE, REGARDLESS OF HOW STAFF REPOSITIONED THE PT PER HIS INSTRUCTIONS AND DIRECTION. PT PULLED UP IN HIS BED MULTIPLE TIMES DURING THE SHIFT ONLY TO HAVE HIM SLIDE DOWN IN THE BED. PT PULLED OFF HIS TELEMETRY LEADS AT THE BEGINNING OF THE SHIFT AND THE PT WAS EDUCATED ABOUT THE IMPORTANCE OF LEAVING THEM ON. PT AGREED TO LEAVE THEM ON AT THAT TIME. PT PULLED THE TELE LEADS OFF AGAIN AT 0015. THIS RN ALSO RECEIVED MULTIPLE CALLS FROM THE TELEMETRY DESK STATING THAT THE PT'S HR WAS ELEVATING INTO THE 150'S (ONE CALL AT 2223 STATED THE PT'S HR WAS IN THE 160'S). PER TELE DESK, PT FLUCTUATES BETWEEN A-FIB AND A-FLUTTER. RONA ORDONEZ INFORMED OF THE SITUATION AND SHE SPOKE TO THE MD ON SHIFT AND 5 MG IM ZYPREXA WAS ORDERED AND GIVEN AT 0110. PT WAS MORE CALM AND PEACEFUL, BUT CONTINUED TO PULL ON HIS LINES (OXYGEN WAS APPLIED D/T LOW PULSE OX READINGS EARLIER IN THE SHIFT, WHICH THE PT PULLED OFF LATER IN THE SHIFT, BUT AFTER PT'S AGITATION WAS ADDRESSED, HE HAS BEEN SATTING IN THE 90'S). PT'S PAIN WAS ADDRESSED WITH BOTH IV AND PO MEDICATIONS USED PER EMAR. DUE TO THE PT'S CONSTANT AGITATION, THIS RN ASKED THE BAGGAGEMAN MD FOR NON-VIOLENT RESTRAINTS TO KEEP THE PT FROM TAKING OFF HIS TELE LEADS AND TO KEEP HIM SAFE FROM INJURY. ONLY THE LEFT LOWER EXTREMITY IS IN RESTRAINTS, WELL ALL FOUR RAILS BEING UP AT THIS TIME. RIGHT LOWER EXTREMITY NOT PLACED IN A RESTRAINT D/T FRACTURE. PT WAS RESTLESS IN THE BEGINNING OF THE SHIFT AND PAT MCKEON AND THIS RN GOT THE PT UP TO THE CHAIR PER HIS REQUEST. PT WAS UNHAPPY ABOUT THIS MOVE AND DID NOT WANT TO STAY IN THE CHAIR WITH HIS FEET UP SO THIS RN AND PAT MCKEON GOT THE PT BACK INTO BED. PT ATTEMPTED TO USE THE WALKER IN HIS ROOM, BUT THE PT IS A MAX 2 PERSON ASSIST AND NEEDS CONTINUAL INSTRUCTION TO MOVE HIS FEET. PT'S BED IS IN THE LOWEST POSITION, CALL LIGHT IS WITHIN REACH.
[2023-03-03 07:30] VITALS: BP 126/68
--- NOTE | 2023-03-03 09:29 | NUR ---
PACKED PATIENTS BELONGINGS:CELL PHONE WITH CHAPLAIN.HEARING AIDES WITH CHAPLAIN,EYE GLASSES AND CASE,ONE DOLLAR FOLDED WITH A QUARTER INSIDE.RN WITH ME WHILE PACKING ITEMS.
--- NOTE | 2023-03-03 10:17 | NUR ---
TRANSFER TO ROOM 348, WITH ALL PERSONAL ITEMS INCLUDING HEARING AIDS; REPORT CALLED TO ROBERT SAPP, GRANDDAUGHTER SALIMA IN ROOM, SHE NOTIFIED DAUGHTERS BY TEXT AND REPORTED THEY ARE AWARE OF TRANSFER.
--- NOTE | 2023-03-03 11:36 | NUR ---
PT WAS ARRIVED TO ROOM 348 AT 1015 VIA WHEEL CHAIR. PT IS A HEAVY TO PERSON PIVOT TRANSFER AT THIS TIME. PT DID NOT INTERACT MUCH AND WAS CALM. PT IS CURRENTLY SITTING UP IN RECLINER CHAIR WITH CHAIR ALARM IN PLACE. WILL CONTINUE TO MONITOR.
--- NOTE | 2023-03-03 12:04 | NUR ---
Spoke with pt's daughters Perri and Re by phone. They state Re assisted pt in filling out his Advance Directive some years ago, and they are currently trying to locate this paperwork. Re states she remembers his wishes. She asks if we can talk about this when she arrives at the hospital in the next hour. Will follow up with Re when she arrives.
--- NOTE | 2023-03-03 15:48 | NUR ---
Met with pt's daughter Re at bedside. Pt appears to be resting comfortably with eyes closed and respirations even/unlabored. Daughter Re agrees to change pt's code status to DNR with limited intervention. She reports this lines up with pt's advance directive, even though they are unable to find the directive. Pt is now DNR as per directive. Family is hopeful for pt to be accepted into rehabilitation for PT prior to returning home. Palliative Care will remain involved and avaialable.
[2023-03-03 17:22] VITALS: BP 89/60
--- NOTE | 2023-03-03 17:41 | NUR ---
PT AOX1 AND COOPERATIVE OF CARE, PT DOING WELL AND UP IN CHAIR WITH ALARM. FAMILY WAS AT BEDSIDE MOST OF THE AFTERNOON. NO DISTRESS NOTED AND WILL CALL TO USE URINAL. CALL LIGHT WITHIN REACH WILL CONTINUE TO MONITOR.
[2023-03-03 19:49] VITALS: BP 103/56
[2023-03-04 03:26] VITALS: BP 126/63
--- NOTE | 2023-03-04 04:14 | NUR ---
SHIFT SUMMARY; NO ACUTE CHANGES OVERNIGHT. THE PT IS AXO X2-3, REORIENTATBLE T/O THE NIGHT. THE PT HAS ATTEMPTED OOB A FEW TIMES. THE PT HAS TELE IN PLACE, A-FIB IN THE -90'S. THE PT HAS BEEN MEDICATED ONCE FOR R HIP/RLE PAIN W/ GOOD RELIEF. THE PT HAS BEEN SLEEPING OFF AND ON T/O THE NIGHT. THE PT DENIES ANY SOB, CHEST PAIN/PRESSURE, N/V OR DIARRHEA. PTS LAST RECORDED BM WAS 02/25, PT HAS BOWEL SOUNDS, PT IS UNSURE OF WHEN HIS LAST BM WAS. CURRENTLY THE PT IS SLEEPING IN BED WITH THE BED IN THE LOWEST POSITION AND THE CALL LIGHT AT BEDSIDE. FIRE SAFETY MAINTAINED T/O THE NIGHT.
[2023-03-04 05:42] LABS: BASOPHILS ABSOLUTE AUTO 0.04 K/mm3 (0.00-0.23); BASOPHILS PERCENT AUTO 0 % (0-2); EOSINOPHILS PERCENT AUTO 2 % (0-6); Hematocrit 25.4 % (37.0-53.0); Hemoglobin 8.2 g/dL (13.5-17.5); IMMATURE GRAN ABSOLUTE AUTO 0.06 K/mm3 (0.00-0.10); IMMATURE GRAN PERCENT AUTO 1 % (0-1); LYMPHOCYTES ABSOLUTE AUTO 1.95 K/mm3 (0.84-5.20); LYMPHOCYTES PERCENT AUTO 16 % (21-46); MONOCYTES ABSOLUTE AUTO 1.66 K/mm3 (0.16-1.47); MONOCYTES PERCENT AUTO 14 % (4-13); Mean Corpuscular HGB 28.5 pg (26.0-34.0); Mean Corpuscular HGB Conc 32.3 g/dL (31.5-36.5); Mean Corpuscular Volume 88 fL (80-100); Mean Platelet Volume 10.9 fL (9.1-12.4); NEUTROPHILS ABSOLUTE AUTO 8.12 K/mm3 (1.96-9.15); NEUTROPHILS PERCENT AUTO 68 % (41-73); Platelet Count 207 K/mm3 (150-400); RDW Coefficient Variation 13.1 % (11.7-14.2); Red Blood Cell Count 2.88 M/mm3 (4.30-5.90); White Blood Cell Count 12.03 K/mm3 (4.00-11.30)
[2023-03-04 06:19] LABS: Albumin, Blood 2.6 g/dL (3.4-5.0); Albumin/Globulin Ratio 0.9 (0.8-1.8); Bilirubin, Total 1.7 mg/dL (0.1-1.0); Bun/Creatinine Ratio 28.1 (12.0-20.0); Calcium, Blood 8.7 mg/dL (8.5-10.1); Creatinine, Blood 1.14 mg/dL (0.60-1.20); Potassium, Blood 4.2 mmol/L (3.5-5.5); Total Protein, Blood 5.6 g/dL (6.4-8.2)
[2023-03-04 15:45] VITALS: BP 90/56
--- NOTE | 2023-03-04 16:59 | NUR ---
NO ACUTE CHANGES PT AOX2. PT IS HAS CONFUSION AND CAN BE IMPULSIVE. PT IS TREATED FOR R HIP PAIN PER EMAR. PT DID WELL EATING AT LUNCH TIME. TAKING FREQUENT NAPS. PT WILL CALL AT TIMES, BUT WILL ALSO TRY TO GET OUT OF BED OR CHAIR. CALL LIGHT IS WITHIN REACH AND BED ALARM IS PLACED WILL CONTINUE TO MONITOR.
[2023-03-04 19:47] VITALS: BP 122/61
[2023-03-05 03:11] VITALS: BP 118/62
--- NOTE | 2023-03-05 05:57 | NUR ---
SHIFT SUMMARY PT ALERT, ORIENTED TO SELF. NORMOTENSIVE, A-FIB/A-FLUTTER 80'S-100'S (VIA POT OPERATOR), AFEBRILE, O2 >95% ON RA. C/O RIGHT SHOULDER PAIN 11/21, MANAGED WITH PRN 5 MG ROXICODONE. NOOB THIS SHIFT. DROPLET PRECAUTIONS MAINTAINED. VOIDING ADEQUATE AMOUNTS OF CONCENTRATED URINE IN URINAL. NO BM THIS SHIFT. PT REMOVED RIGHT HIP DRESSING, REPLACED WITH ISLAND DRESSING. MINIMAL SEROUS DRAINAGE ON DRESSING PT REMOVED. TOLERATING A MECHANICAL SOFT/NECTAR THICK DIET. BED ALARM SET FOR PT'S SAFETY FIRE SAFETY CHECKS COMPLETED
[2023-03-05 06:58] LABS: BASOPHILS ABSOLUTE AUTO 0.05 K/mm3 (0.00-0.23); BASOPHILS PERCENT AUTO 1 % (0-2); EOSINOPHILS ABSOLUTE AUTO 0.17 K/mm3 (0.00-0.68); EOSINOPHILS PERCENT AUTO 2 % (0-6); Hematocrit 25.1 % (37.0-53.0); Hemoglobin 7.8 g/dL (13.5-17.5); IMMATURE GRAN ABSOLUTE AUTO 0.06 K/mm3 (0.00-0.10); IMMATURE GRAN PERCENT AUTO 1 % (0-1); LYMPHOCYTES ABSOLUTE AUTO 1.75 K/mm3 (0.84-5.20); LYMPHOCYTES PERCENT AUTO 17 % (21-46); MONOCYTES ABSOLUTE AUTO 1.15 K/mm3 (0.16-1.47); MONOCYTES PERCENT AUTO 11 % (4-13); Mean Corpuscular HGB 27.8 pg (26.0-34.0); Mean Corpuscular HGB Conc 31.1 g/dL (31.5-36.5); Mean Corpuscular Volume 89 fL (80-100); Mean Platelet Volume 10.9 fL (9.1-12.4); NEUTROPHILS PERCENT AUTO 69 % (41-73); Platelet Count 243 K/mm3 (150-400); RDW Coefficient Variation 13.2 % (11.7-14.2); RDW Standard Deviation 43.5 fL (35.1-46.3); Red Blood Cell Count 2.81 M/mm3 (4.30-5.90); White Blood Cell Count 10.28 K/mm3 (4.00-11.30)
[2023-03-05 07:12] LABS: Albumin, Blood 2.7 g/dL (3.4-5.0); Albumin/Globulin Ratio 0.9 (0.8-1.8); Bilirubin, Total 1.7 mg/dL (0.1-1.0); Bun/Creatinine Ratio 29.6 (12.0-20.0); Calcium, Blood 8.5 mg/dL (8.5-10.1); Creatinine, Blood 1.15 mg/dL (0.60-1.20); Globulin, Blood 2.9 g/dL (2.2-4.0); Total Protein, Blood 5.6 g/dL (6.4-8.2)
[2023-03-05 07:43] VITALS: BP 138/73
[2023-03-05 16:16] VITALS: BP 139/69
--- NOTE | 2023-03-05 18:46 | NUR ---
SHIFT SUMMARY PT SITTING UP IN BED WITH GRANDDAUGHTERS THIS MORNING. CONVERSATIONAL BUT HARD TO UNDERSTAND. ORIENTED X2-3. CRIED OUT WHENEVER HE WAS REPOSITIONED. MEDICATED AT 1415 WITH OXYCODONE. SHIFT PROGRESSED PT BECAMED MORE RESTLESS, KICKING LEGS OVER SIDE OF BED, ATTEMPTING TO GET UP, YELLING OUT. DAUGHTER IN TO ROOM THIS EVENING AND STATED HE HAS NEVER TAKEN STRONG PAIN MEDS BEFORE AND HE APPEARED TO BE HALLUCINATING TO HER. SHE FELT IT WAS THE PAIN MEDS AND THAT HES DONE THIS THE LAST FEW DAYS. SPOKE WITH MD ON PHONE AND OBTAINED NEW ORDERS. MORE SETTLED ONCE DAUGHTER IN ROOM AND DAUGHTER PLANS TO STAY WITH PT OVERNIGHT. DRESSING TO R HIP INTACT. R WRIST BRACE IN PLACE WITH MIDL SWELLING NOTED TO SITE.
[2023-03-05 19:30] VITALS: BP 100/54
[2023-03-06 04:24] VITALS: BP 113/62
--- NOTE | 2023-03-06 06:24 | NUR ---
END OF SHIFT SUMMARY PT A&O x3-4, VSS, AFEBRILE. PT CALM AND COOPERATIVE WITH CARE PROVIDED. PT's DAUGHTER ROOMING-IN WITH PT. NO BEHAVIORS OVERNIGHT. PT DIDN'T SLEEP WELL, PT CALLED FREQUENTLY TO USE THE URINAL AND BE REPOSITIONED. PAIN MANAGED WITH PRN APAP FOR PAIN TO R HIP/LEG. PT UP TO BSC USING ASSISTANCE FROM 2 CAREGIVERS, PT EASILY REDIRECTABLE, VERBAL CUES USED WHILE TRANSFERING. CALL LIGHT WITHIN REACH, [facility]. 0615: PT APPEARS TO BE ASLEEP, EYES CLOSED, COMFORTABLE IN BED.
[2023-03-06 08:26] VITALS: BP 122/60
--- NOTE | 2023-03-06 17:33 | NUR ---
SHIFT SUMMARY PT MORE APPROPRIATE TODAY THAN YESTERDAY. FAMILY IN ROOM FOR PART OF THE DAY. BOWEL CARE STARTED WITH SUPPOSITORY. STOOL IN RECTAL VAULT. PUSHES CALL BUTTON WITH FAMILY GONE BUT STILL APPROPRIATE WITH CONVERSATION. P.T. IN AND SAW PT AND STATED HE NEEDS TO BE A LIFT PT. LOOSE RATTLY COUGH WITH OCC PRODUCTION PER PT WHICH HE SWALLOWS.
[2023-03-06 21:08] VITALS: BP 109/54
[2023-03-07 04:03] VITALS: BP 112/64
[2023-03-07 07:46] VITALS: BP 128/61
[2023-03-07 08:25] LABS: Stool Occult Blood Guaiac 1 Neg (Neg)
--- NOTE | 2023-03-07 12:49 | NUR ---
LARGE FAMILY VISITING, PATIENT AND FAMILY EDUCATED ON FIRE SAFETY POLICY AND IGNITION DEVICES, AND COVID ISOLATION. PATIENT PLEASANT TO CARE, INTAKE OF FOOD INCREASED, PATIENT PLEASANT TO CARE, FAMILY HELPFUL WITH CARE, ANA ACCEPTED PATIENT, POSSIBLE DISCHARGE TOMORROW, BUT MAYBE FRIDAY, CALL LIGHT WITH IN REACH
--- NOTE | 2023-03-07 19:22 | NUR ---
ALERTNESS AND ORIENTATION IMPROVED, APPETITE INCREASED, ABLE TO MAKE NEEDS KNOWN, ALERT AND ORIENTED X3, FAMILY HELPFULL AT BEDSIDE, PATIENT FORGETFUL AT TIMES, EASILY RE-DIRECTED, WILL RELAY TO PM RN
[2023-03-07 19:46] VITALS: BP 119/64
[2023-03-08 03:48] VITALS: BP 126/64
--- NOTE | 2023-03-08 06:04 | NUR ---
SHIFT SUMMARY NOC PT A/O TO SELF AND FAMILY. CONFUSED AND HARD TO REDIRECT. IN ENCHANCED ISO FOR C-19. PT BEGINS TO SCREAM OUT AFTER STAFF LEAVES ROOM AND WANTS STAFF TO STAY IN ROOM. PT INFORMED THAT STAFF CANNOT STAY WITH PT ALL NIGHT IN ROOM, PT DOES NOT ACCEPT THIS. PT USED CALL LIGHT TO REPORT NEEDING TO HAVE BM AND WANTED TO USE BSC, PT WAS UNABLE TO SUSTAIN ANY BODY WT TO STAND EVEN WITH 2PA, PT WAS PUT ON BSC WITH TWO STAFF AND INFORMED THAT BEDPAN WILL BE USED GOING FORWARD. PT IS UNHAPPY WITH THIS. PT CONTIUES TO CALL OUT FOR HELP BUT IS NOT IN ACTUAL DISTRESS. ORDER OBTAINED FOR IM HADOL FOR AGITIATION AND NORCO FOR PAIN FOR R FEMUR FX AND R WRIST FX WHICH PT REFUSES TO WEAR BRACE. PT EXPECTED TO DISCHARGE TO [facility] 03/08/23 OR 03/09/23. PT IS CURRENTLY RESTING WITH BED ALARM ON, BED IN LOWEST POSITION, AND CALL LIGHT WITHIN REACH.
[2023-03-08 07:31] VITALS: BP 123/64
--- NOTE | 2023-03-08 09:51 | NUR ---
1:1 AT DOOR, PATIENT REFUSED BREAKFAST, UPDATED FAMILY-LARS, PATIENT SLEEPING, SNORING LOUDLY, RESPS EVEN AND NONLABORED, NO GRIMACING PRESENTLY, WILL WAIT UNTIL PATIENT IS MORE AWAKE FOR AM MEDICATIONS, BED/CHAIR ALARMS ON
[2023-03-08 16:32] VITALS: BP 103/49
--- NOTE | 2023-03-08 18:42 | NUR ---
1:1, PATIENT MORE ALERT AND ORIENTED THIS AFTERNOON, PATIENT ALL DINNER, FAMILY EDUCATED ON PATIENT STATUS AND DISCHARGE PLAN HELD UNTIL FRIDAY THROUGH OUT THE DAY, FAMILY HELPFUL WITH CARING FOR PATIENT, NO IV ACCESS, BEDALARM ON, CALL LIGHT WITH IN REACH
[2023-03-08 19:59] VITALS: BP 117/60
[2023-03-08 20:01] VITALS: BP 104/56
[2023-03-09 03:50] VITALS: BP 120/52
--- NOTE | 2023-03-09 04:07 | NUR ---
SHIFT SUMMARY PATIENT HAD NO ACUTE CHANGES. MULTIPLE OOB ATTEMPTS. 1:1 SITTER PRESENT. AXOX 2 WITH GARBLED SPEECH. TWO ASSIST TO BSC. NO IV ACCESS. REPORTED WRIST PAIN X ONE AND TYLENOL 1,000 MG GIVEN PER EMAR. VSS/AFEBRILE. DENIES CHEST PAIN, SOB, AND N/V. ON ROOM AIR. ENHANCED PRECAUTIONS C-19+. CALL LIGHT IN REACH. BED IN LOWEST POSITION AND ALARM ACTIVATED. WILL CONTINUE TO MONITOR UNTIL DAY SHIFT NURSE ASSUMES CARE.
[2023-03-09 07:35] VITALS: BP 125/57
[2023-03-09 16:20] VITALS: BP 112/61
--- NOTE | 2023-03-09 17:00 | NUR ---
NO ACUTE CHANGES, PATIENT MENTATION BACK TO BASE LINE, ORIENTED TO SELF, PERSON, FAMILY. 1:1 AT BEDSIDE, PATIENT COOPERATIVE AND USED CALL LIGHT APPROPRIATELY, CLEARLY MAKES NEEDS KNOWN, FAMILY VERY HELPFUL AT BEDSIDE, WILL RELAY TO PM RN
[2023-03-09 20:21] VITALS: BP 111/50
[2023-03-10 02:14] VITALS: BP 109/72
--- NOTE | 2023-03-10 04:14 | NUR ---
SHIFT SUMMARY PATIENT HAD NO ACUTE CHANGES. AXOX 2 AND TWO ASSIST TO BSC. USES URINAL AT BEDSIDE. NO IV ACCESS. DENIES CHEST PAIN, SOB, AND N/V. REPORTED RIGHT HIP PAIN AND TYLENOL GIVEN PER EMAR. VSS/AFEBRILE. SITTER 1:1. CBG 119. STAYED AWAKE T/O SHIFT. CALL LIGHT IN REACH. BED IN LOWEST POSITION AND ALARM ACTIVATED. WILL CONTINUE TO MONITOR UNTIL DAY SHIFT NURSE ASSUMES CARE.
[2023-03-10 07:54] VITALS: BP 115/62
[2023-03-10 16:30] VITALS: BP 101/66
--- NOTE | 2023-03-10 17:21 | NUR ---
SHIFT SUMMARY- PT IS ALERT, PLESANT AND COOPERATIVE. HE WAS UP TO THE CHAIR THIS SHIFT. USED THE BSC. HE IS IN ISOLATION FOR COVID. HIS BED IS IN THE LOW POSITION AND CALL LIGHT IS WITIN REACH.
[2023-03-10 19:38] VITALS: BP 121/52
[2023-03-11 01:19] VITALS: BP 113/67
--- NOTE | 2023-03-11 03:55 | NUR ---
SHIFT SUMMARY ADMITTED FOR RIGHT HIP FRACTURE. DNR CODE. PLAN IS FOR PLACEMENT. DR. WHITT IS ORTHO CONSULT. HX OF COVID+, NO LONGER IN ISOLATION. HE DID NOT SLEEP THIS SHIFT. PRN'S GIVEN. IMPULSIVE. HE IS CONFUSED. A&O TO SELF AND FAMILY. ON RA. HX OF FALLS. BM ON PREVIOUS SHIFT
[2023-03-11 07:29] VITALS: BP 112/53
[2023-03-11 15:25] VITALS: BP 112/56
--- NOTE | 2023-03-11 19:34 | NUR ---
Shift summary PT ALERT TO SELF. PT PLESANT AND COOPERATIVE BUT VERY SOMNOLENT T/O DAY. NO ACUTE CHANGES. VSS. NO C/O PAIN. FAMILY AT BEDSIDE T/O DAY. PT UP TO CHAIR FOR MEALS. IMPULSIVE. BED ALARM ON. BED IN LOWEST POSITION AND CALL LIGHT IN REACH.
[2023-03-11 20:10] VITALS: BP 109/54
[2023-03-12 05:02] VITALS: BP 128/67
--- NOTE | 2023-03-12 07:11 | NUR ---
SHIFT SUMMARY NOC PT A/O X 3. PLEASANT AND COOOPERATIVE WITH CARE. NO ACUTE CHANGES TO REPORT. PT HAS HAD 2 XL SOFT BM AND BEDTIME BOWEL RX HELD. PT HAS BEEN ABLE TO USE BSC WITH 2PA FWW STAND PIVOT. PT HAD C/O OF YO AND MEDICATED PER EMAR WITH HYDROXYZINE. PT HAS NO IV ACCESS ORDER STILL IN PLACE. R WRIST BRACE IN PLACE FOR R WRIST FX. MEPILEX IN PLACE FOR SKIN TEAR ON L ELBOW. PT IS WAITING ON EVALUATION FROM [place] 03/12/23 FOR PLACEMENT. PT IS CURRENTLY RESTING WITH BED ALARM ON, BED IN LOWEST POSITION, AND CALL LIGHT WITHIN REACH.
[2023-03-12 07:26] VITALS: BP 107/58
[2023-03-12 16:08] VITALS: BP 92/54
[2023-03-12 19:30] VITALS: BP 106/54
--- NOTE | 2023-03-12 20:01 | NUR ---
SHIFT SUMMARY PT A&OX2 AND PLEASANT. PT WORKED WITH PHYSICAL THERAPY AND OT TODAY AND TOLERATED WELL. PT C/O SORE THROAT IN AM AND ASKED FOR TYLENOL. MEDICATED PER EMAR WITH GOOD EFFECT. SPOKE WITH PT'S DAUGHTER TODAY. DAUGHTER STATED THAT PT HAD APPOINTMENT WITH DR. WHITT OFFICE TOMORROW TO HAVE JANNA REMOVED. PER DAUGHTER, THE DOCTOR OFFICE ASKED TO BE CONTACTED ABOUT NEXT STEPS FOR PT. THIS NURSE CALLED OFFICE AND LEFT MESSAGE FOR DR WHITT REGARDING STAPLE REMOVAL. NO CALL BACK RECIEVED THIS SHIFT. PT WAS UP TO CHAIR FOR MEALS. VSS. BED IN LOWEST POSITION AND CALL LIGHT IN REACH.
[2023-03-13 02:17] VITALS: BP 107/60
--- NOTE | 2023-03-13 05:46 | NUR ---
SHIFT SUMMARY; NO ACUTE CHANGES OVERNIGHT. THE PT HAS BEEN RESTLESS T/O THE NIGHT AND HAS BEEN UP AND DOWN ALL NIGHT. PT CALLS ABOUT EVERY 10-15 MINUTES WANTING TO GO FROM THE BED TO THE CHAIR OR VICE [place]. THE PT IS AXO X2-3 AND A 2 MAX ASSIST W/ WALKER TO THE [facility]. PT IS WEAK AND TENDS TO LEAN BACK WHILE WALKING. THE PT HAS ENDORSED SOME PAIN T/O THE NIGHT WELL A SOAR THROAT. MEDICATED PER EMAR W/ GOOD RELIEF. THE PT HAS JUST NOW SETTLED INTO BED AT ALMOST 0600. THE PT DENIES ANYS SOB, CHEST PAIN/PRESSURE OR N/V. CURRENTLY THE PT IS SLEEPING IN BED WITH THE BED IN THE LOWEST POSITION AND THE CALL LIGHT AT BEDSIDE. FIRE SAFETY ROUNDS COMPLETED.
[2023-03-13 07:22] VITALS: BP 111/55
[2023-03-13 10:32] VITALS: BP 86/53
[2023-03-13 15:40] VITALS: BP 102/55
[2023-03-13 17:28] LABS: Source, Urine Clean Catch
[2023-03-13 17:31] LABS: Appearance, Urine Clear (Clear); Bilirubin, Urine Neg (Neg); Blood, Urine Neg (Neg); Color, Urine Yellow (P-Yellow); Glucose Qualitative, Urine Neg (Neg); Ketones, Urine Neg (Neg); Leukocyte Esterase, Urine Neg (Neg); Nitrite, Urine Neg (Neg); Protein, Urine Neg (Neg); Urobilinogen, Urine NORM (Normal)
[2023-03-13 19:12] VITALS: BP 123/60
--- NOTE | 2023-03-13 19:59 | NUR ---
SHIFT SUMMARY PATIENT UP TO CHAIR FOR MEALS USING RIGHT ARM WALKER, WORKED WITH PT, PATIENT REQUESTS REPOSITIONING. MEDICATED FOR PAIN WITH TYELENOL DURING SHIFT WITH RELIEF.PATIENT WITH SOFT BP THIS AM, METOPROLOL GIVEN BUT COZAAR HELD AFTER 1 HOUR RECHECK OF BP, DR ODOM ORDERS HOLD COZAAR FOR THE DAY. PATIENT C/O BURNING WITH URINATION, FREQUENCY AND URGENCY. DR ODOM NOTIFIED AND ORDERED UA WITH REFLEX TO CULTURE. BED IN LOW POSITION, CALL LIGHT IN REACH. BED ALARM ON. PATIENT USES CALL LIGHT MOST OF THE TIME BUT IS FORGETFUL.
[2023-03-14 02:12] VITALS: BP 113/54
--- NOTE | 2023-03-14 05:29 | NUR ---
SHIFT SUMMARY PT IS A&OX3, OFF ON DATE, PLEASANT AND COOPERATIVE WITH CARES. VSS, NO ACUTE CHANGES THIS SHIFT. C/O PAIN ALL ALONG RIGHT SIDE OF HIS BODY AND A SORE THROAT. ISLAND DRESSING TO RIGHT HIP. REFUSING TO WEAR RIGHT WRIST BRACE. X2 ASSIST WITH PLATFORM WALKER TO BSC. CONTINENT OF URINE, BRIEF IN PLACE. BM X1 THIS SHIFT. CALLS FREQUENTLY FOR BR ASSIST. AWAKE MOST OF THE NIGHT. BED ALARM SET FOR PT'S SAFETY. BED IN LOWEST POSITION, CALL LIGHT WITHIN REACH. FIRE SAFETY CHECKS COMPLETED
[2023-03-14 07:51] VITALS: BP 113/76
[2023-03-14] MEDS ORDERED: DOCU100 PO (11:08)
[2023-03-14] MEDS ORDERED: HYDHCL25 PO (11:09)
[2023-03-14] MEDS ORDERED: DULCOLAX400 MG/5 M PO (11:10)
[2023-03-14] MEDS ORDERED: METO50 PO (11:11)
[2023-03-14] MEDS ORDERED: SENN187 PO (11:11)
== END 2023-03-14 11:48 | DRG 480 ==
LOC: ER 04:57 → MEDS 10:06 → ERHOLD 10:06 → SURS 10:06 → MEDS 03-03 10:17
PROVIDERS: Emergency Medicine; Internal Medicine; Nurse Practitioner Acute Care; Ophthalmology; Orthopaedic Surgery; ADMIT Family Medicine
PROC: 8E0ZXY6 Isolation (ICD-10-PCS; 2023-02-27)
PROC: 0QH634Z Insertion of Internal Fixation Device into Right Upper Femur, Percutaneous Approach (ICD-10-PCS; principal; 2023-02-27 13:30)
DX: S72.141A Displaced intertrochanteric fracture of right femur, initial encounter for closed fracture (principal); G93.41 Metabolic encephalopathy; U07.1 COVID-19; S52.611A Displaced fracture of right ulna styloid process, initial encounter for closed fracture; N17.9 Acute kidney failure, unspecified; I31.39 Other pericardial effusion (noninflammatory); I27.20 Pulmonary hypertension, unspecified; Z66 Do not resuscitate; S00.03XA Contusion of scalp, initial encounter; E16.2 Hypoglycemia, unspecified; S40.011A Contusion of right shoulder, initial encounter; N18.9 Chronic kidney disease, unspecified; I08.3 Combined rheumatic disorders of mitral, aortic and tricuspid valves; I12.9 Hypertensive chronic kidney disease with stage 1 through stage 4 chronic kidney disease, or unspecified chronic kidney disease; D64.9 Anemia, unspecified; W18.39XA Other fall on same level, initial encounter; R39.15 Urgency of urination; K59.00 Constipation, unspecified; Y92.002 Bathroom of unspecified non-institutional (private) residence as the place of occurrence of the external cause; Z88.0 Allergy status to penicillin
CPT/HCPCS: 0241U; 36415; 36416; 70450; 71260; 73030; 73060; 73090; 73502; 73552; 74177; 76377; 80048; 80053; 81003; 82272; 82803; 82947; 83880; 85014; 85018; 85025; 85027; 92526; 92610; 93005; 93010; 93306; 94760; 94762; 96374; 96376; 97110; 97110-CQ; 97112; 97116; 97116-CQ; 97161; 97166; 97530; 97535; 99285-25; A9270; C1713; J0690; J1170; J1630; J2270; J2704; J3010; J7120; Q9967

== ENCOUNTER 2023-05-11 12:41 | Emergency (ER) | payer OTHER ==
[~2023-05-11] VITALS: Ht 182.9 cm; Wt 68.0 kg
[~2023-05-11 12:41] MED LIST changes: +DOCU100 PO; +DULCOLAX400 MG/5 M PO; +GUAI600T33 PO; +HYDHCL25 PO; +LOSA25 PO; +MASOPHEN325 M1 PO; +METO50 PO; +SENN187 PO
[2023-05-11 16:24] VITALS: BP 133/79
== END 2023-05-11 16:27 | disposition home or self-care (01) ==
LOC: ER 12:41
DX: S51.011A Laceration without foreign body of right elbow, initial encounter (principal); S00.83XA Contusion of other part of head, initial encounter; I48.91 Unspecified atrial fibrillation; W05.0XXA Fall from non-moving wheelchair, initial encounter; Z88.0 Allergy status to penicillin; Z91.018 Allergy to other foods; Z79.899 Other long term (current) drug therapy; I10 Essential (primary) hypertension
CPT/HCPCS: 70450; 72125; 93005; 93010; 99284-25; A9270